=== PATIENT | female | born 1995 | race Caucasian/White ===

== ENCOUNTER 2019-01-14 18:57 | Emergency (ER) | payer OTHER ==
--- NOTE | 2019-01-14 19:48 | ER Document Report ---
ED Medical Screen (RME) - General Chief Complaint: Abscess Stated Complaint: SKIN PROBLEM Time Seen by Provider: 01/14/19 19:43 TRAVEL OUTSIDE OF THE [place] IN LAST 30 DAYS: No - HPI Notes: 01/14/19 19:46 Patient is a 23-year-old female with a history of hidradenitis suppurativa who presents c/o swelling, redness to her midline buttock area that is been present for the past week. No history of abscess in this area before. No history of MRSA. Denies drug allergies. Denies BHATTI, fever, neck pain, URI, CP, SOB, Abd pain, dysuria, back pain, or rash. I have treated and performed a rapid initial assessment of this patient. A comprehensive ED assessment and evaluation of the patient, analysis of test results and completion of medical decision making process will be conducted by additional ED providers. PHYSICAL EXAMINATION: GENERAL: Well-appearing, well-nourished and in no acute distress. A&Ox4. Answers questions appropriately. buttock: + erythemic tender area midline buttock favoring the rt gluteal cleft. No obvious pits noted. No discharge noted. - Related Data Allergies/Adverse Reactions: No Known Allergies Allergy (Unverified 01/14/19 18:58) Past Medical History - Social History Chew tobacco use (# tins/day): No Frequency of alcohol use: None Drug Abuse: None Renal/ Medical History: Denies: Hx Peritoneal Dialysis Physical Exam - Vital signs Vitals: Temp Pulse Resp BP Pulse Ox 98.4 F 101 H 20 136/77 H 99 01/14/19 19:27 01/14/19 19:27 01/14/19 19:27 01/14/19 19:27 01/14/19 19:27 Course - Vital Signs Vital signs: Temp Pulse Resp BP Pulse Ox 98.4 F 101 H 20 136/77 H 99 01/14/19 19:27 01/14/19 19:27 01/14/19 19:27 01/14/19 19:27 01/14/19 19:27
[2019-01-14] MEDS ORDERED: OXYCODONE-ACETAMINOPHEN 5-325 MG TABLET PO ONE (20:36)
[2019-01-14] MEDS ORDERED: LIDOCAINE 1% INJ-PF (10 MG/ML) 30 ML SDV INJ ONE (20:36)
[2019-01-14] MEDS ORDERED: OXYCODONE-ACETAMINOPHEN 5-325 MG TABLET ONE (21:15)
[2019-01-14] MEDS ORDERED: LIDOCAINE 1% INJ-PF (10 MG/ML) 30 ML SDV ONE (21:17)
--- NOTE | 2019-01-14 21:40 | ER Document Report ---
Entered by LETA CORONADO SCRIBE 01/14/192027 Acting as scribe for:KAITLYNN ALBARRAN MD ED Skin Rash/Insect Bite/Abscs - General Chief Complaint: Abscess Stated Complaint: SKIN PROBLEM Time Seen by Provider: 01/14/19 19:43 Mode of Arrival: Ambulatory Information source: Patient Notes: 23 year old female with hidradenitis suppurativa that presents to the emergency department today with complaints of an abscess around her tailbone for one week. Patient states she has a large amount of doxycycline at home due to her hidradenitis suppurativa and she states that she began taking it one week ago with no relief. Patient reports increased pain with ambulation and sitting down. TRAVEL OUTSIDE OF THE [place] IN LAST 30 DAYS: No - Related Data Allergies/Adverse Reactions: No Known Allergies Allergy (Unverified 01/14/19 18:58) Past Medical History - General Information source: Patient - Social History Smoking Status: Never Smoker Cigarette use (# per day): No Chew tobacco use (# tins/day): No Frequency of alcohol use: None Drug Abuse: None Lives with: Family Family History: Reviewed & Not Pertinent Patient has suicidal ideation: No Patient has homicidal ideation: No - Medical History Notes: Hidradenitis suppurativa Surgical Hx: Negative Review of Systems - Review of Systems Constitutional: No symptoms reported EENT: No symptoms reported Cardiovascular: No symptoms reported Respiratory: No symptoms reported Gastrointestinal: No symptoms reported Genitourinary: No symptoms reported Female Genitourinary: No symptoms reported Musculoskeletal: No symptoms reported Skin: See HPI, Other - buttock abscess Hematologic/Lymphatic: No symptoms reported Neurological/Psychological: No symptoms reported -: Yes All other systems reviewed and negative Physical Exam - Vital signs Vitals: Temp Pulse Resp BP Pulse Ox 98.4 F 101 H 20 136/77 H 99 01/14/19 19:27 01/14/19 19:27 01/14/19 19:27 01/14/19 19:27 01/14/19 19:27 - Notes Notes: PHYSICAL EXAMINATION: GENERAL: Well-appearing, well-nourished and in no acute distress. HEAD: Atraumatic, normocephalic. EYES: Pupils equal round and reactive to light, extraocular movements intact, sclera anicteric, conjunctiva are normal. ENT: nares patent, oropharynx clear without exudates. Moist mucous membranes. NECK: Normal range of motion, supple without lymphadenopathy LUNGS: Breath sounds clear to auscultation bilaterally and equal. No wheezes rales or rhonchi. HEART: Regular rate and rhythm without murmurs ABDOMEN: Soft, nontender, normoactive bowel sounds. No guarding, no rebound. No masses appreciated. BUTTOCK: At the top of the buttock cleft to the left is a tender indurated area about 1 cm wide and 1/2 cm in the longitudinal axis. There is very mild erythema noted. EXTREMITIES: Normal range of motion, no pitting or edema. No cyanosis. NEUROLOGICAL: Cranial nerves grossly intact. Normal speech, normal gait. Normal sensory, motor, and reflex exams. PSYCH: Normal mood, normal affect. SKIN: Warm, Dry, normal turgor, no rashes or lesions noted. Course - Vital Signs Vital signs: Temp Pulse Resp BP Pulse Ox 98.4 F 101 H 20 136/77 H 99 01/14/19 19:27 01/14/19 19:27 01/14/19 19:27 01/14/19 19:27 01/14/19 19:27 Procedures - Incision and Drainage Left Buttock Time completed: 22:15 Type: Simple Anesthetic type: 1% Lidocaine mL's of anesthetic: 6 Blade size: 11 I&D procedure: Shurclens applied, Iodoform packing placed Incision Method: Incision made by scalpel Notes: 01/14/19 22:25 Longitudinal incision was made into the indurated erythematous area. These subcutaneous tissue was quite thickened suggesting some chronic inflammation. There was no abscess cavity found. The wound was irrigated with 5 mL's normal saline, and packed with quarter inch iodoform gauze. Discharge - Discharge Clinical Impression: Left buttock abscess Condition: Stable Disposition: HOME, SELF-CARE Additional Instructions: Abscess You have an abscess (boil). This a pus-forming infection, usually due to staph. Some boils may be left to drain on their own, but most require lancing. From the time the tender lump first appears, it may be three or four days before the abscess is ready to simeon. Local heat and rest help at this stage of treatment. An antibiotic may prevent spread of the infection. Once the abscess is opened, packing may be placed into it. This is done so pus is not sealed inside by premature closure of the cavity. The packing will be removed at your follow-up visit or you may be advised to remove it yourself at home. Sometimes this packing must be replaced a few times during healing. The wound will heal with surprisingly little scar. Depending on the size and location of an abscess, healing can take one to four weeks. You may shower and wash the area around the incision site two or three times a day. Antibiotics may be prescribed, but are usually not necessary after an abscess has been drained. If you develop fever, chilling, worsening pain, or increasing swelling in the area, call the doctor or return immediately. Continue taking the doxycycline you are prescribed for the next several days. Remove the gauze packing in 2 days. Immediately begin probing the wound several times a day with a Q-tip dipped in peroxide. Soaking in a warm tub will make the area feel better, and may help it get well quicker. Take ibuprofen 800 mg every 8 hours for pain and inflammation. Take the pain medication as prescribed when needed. Follow-up [facility] if not improving. RETURN TO THE EMERGENCY ROOM IF ANY NEW OR WORSENING SYMPTOMS. Prescriptions: Oxycodone HCl/Acetaminophen [Percocet 5-325 mg Tablet] 1 tab PO ASDIR PRN #10 tablet PRN Reason: Forms: Return to Work Scribe Attestation: 01/14/19 20:35 I personally performed the services described in the documentation, reviewed and edited the documentation which was dictated to the scribe in my presence, and it accurately records my words and actions. I personally performed the services described in the documentation, reviewed and edited the documentation which was dictated to the scribe in my presence, and it accurately records my words and actions.
[2019-01-14] MEDS ORDERED: HYDROCODONE/ACETAMINOPHEN 5-325 MG (6 TAB/ER DISP) PO PRN (22:29)
[2019-01-14 22:39] VITALS: BP 120/58
== END 2019-01-14 23:03 | disposition home or self-care (01) ==
LOC: ER 18:57
PROC: 0H98XZZ Drainage of Buttock Skin, External Approach (ICD-10-PCS; principal; 2019-01-14)
DX: L02.31 Cutaneous abscess of buttock (principal)
CPT/HCPCS: 10060; A6266; J3490

== ENCOUNTER 2019-01-17 18:08 | Emergency (ER) | payer OTHER ==
[2019-01-17 18:20] VITALS: BP 133/89
--- NOTE | 2019-01-17 18:42 | ER Document Report ---
ED Suture/Wound Recheck - General Chief Complaint: Wound Recheck Stated Complaint: ABSCESS/NEEDS ROZ REMOVED,CLEANED Time Seen by Provider: 01/17/19 18:36 Mode of Arrival: Ambulatory Information source: Patient Notes: 23-year-old female presented to ED for perirectal abscess that needs to be reassessed. It was I&D on Saturday. She states they put plaque packing in the wound and she was told to take it out in 48 hours. She states she has been trying to take it out for 2 days but is too painful and she has not been able to pull it out. States her and her both have tried so she came to the emergency room to have it removed. There is no signs or symptoms of infection at this time it is draining after the packing was removed. There is no redness or inflammation at the site. TRAVEL OUTSIDE OF THE [place] IN LAST 30 DAYS: No - HPI Previous ED treatment: I&D of abscess Antibiotics given previously: Prescription Quality of pain: Achy Severity: Moderate Pain Level: 3 Exacerbated by: Sitting Relieved by: Denies - Related Data Allergies/Adverse Reactions: No Known Allergies Allergy (Verified 01/17/19 18:10) Past Medical History - General Information source: Patient - Social History Smoking Status: Never Smoker Lives with: Family Family History: Reviewed & Not Pertinent Patient has suicidal ideation: No Patient has homicidal ideation: No - Past Medical History Cardiac Medical History: Reports: None Pulmonary Medical History: Reports: None EENT Medical History: Reports: None Neurological Medical History: Reports: None Endocrine Medical History: Reports: None Renal/ Medical History: Reports: None Malignancy Medical History: Reports: None GI Medical History: Reports: None Musculoskeletal Medical History: Reports None Skin Medical History: Reports Hx Cellulitis - Hidradenitis Psychiatric Medical History: Reports: None Traumatic Medical History: Reports: None Infectious Medical History: Reports: None Surgical Hx: Negative Review of Systems - Review of Systems Constitutional: No symptoms reported EENT: No symptoms reported Cardiovascular: No symptoms reported Respiratory: No symptoms reported Gastrointestinal: No symptoms reported Genitourinary: No symptoms reported Female Genitourinary: No symptoms reported Musculoskeletal: No symptoms reported Skin: Other - Recheck of abscess to perirectal area. She does have a history of active hidradenitis Hematologic/Lymphatic: No symptoms reported Neurological/Psychological: No symptoms reported Physical Exam - Vital signs Vitals: Temp Pulse Resp BP Pulse Ox 98.0 F 113 H 18 133/89 H 97 01/17/19 18:19 01/17/19 18:19 01/17/19 18:19 01/17/19 18:19 01/17/19 18:19 Interpretation: Normal - General General appearance: Appears well, Alert - HEENT Head: Normocephalic, Atraumatic Eyes: Normal Pupils: PERRL - Respiratory Respiratory status: No respiratory distress Chest status: Nontender Breath sounds: Normal Chest palpation: Normal - Cardiovascular Rhythm: Regular Heart sounds: Normal auscultation Murmur: No - Abdominal Inspection: Normal Distension: No distension Bowel sounds: Normal Tenderness: Nontender Organomegaly: No organomegaly - Back Back: Normal, Nontender - Extremities General upper extremity: Normal inspection, Nontender, Normal color, Normal ROM, Normal temperature General lower extremity: Normal inspection, Nontender, Normal color, Normal ROM, Normal temperature, Normal weight bearing. No: Sharlene's sign - Neurological Neuro grossly intact: Yes Cognition: Normal Orientation: AAOx4 [place] Coma Scale Eye Opening: Spontaneous [place] Coma Scale Verbal: Oriented [place] Coma Scale Motor: Obeys Commands [place] Coma Scale Total: 15 Speech: Normal Motor strength normal: LUE, RUE, LLE, RLE Sensory: Normal - Psychological Associated symptoms: Normal affect, Normal mood - Skin Skin Temperature: Warm Skin Moisture: Dry Skin Color: Normal Skin irregularity: Abscess Location of irregularity: Other - Packing was removed from abscess to the buttocks there was I&D 2 days ago. She does have a history of hidradenitis Irregularity with: Swelling, Tenderness Course - Re-evaluation Re-evalutation: 01/17/19 18:51 Packing removed abscess irrigated and patient was discharged home to continue antibiotics. She was also instructed on using a hand-held shower to irrigate the area 3 times a day. Patient verbalized understanding and agreement with treatment plan and patient was discharged home. - Vital Signs Vital signs: Temp Pulse Resp BP Pulse Ox 98.0 F 109 H 18 133/89 H 97 01/17/19 18:19 01/17/19 19:01 01/17/19 18:19 01/17/19 18:19 01/17/19 18:19 Discharge - Discharge Clinical Impression: Abscess re-check Condition: Stable Disposition: HOME, SELF-CARE Instructions: Family Physicians / Practices Additional Instructions: Please irrigate the wound 3 times a day as I have instructed you. Use Tylenol or Motrin for your discomfort. Please keep dressings to the area as it will continue to drain for at least a week or more. Kotex is the best kind of dressing for this area as it is very absorbent Follow-up with your primary care doctor in the next 3 to 5 days FOLLOW-UP CARE: If you have been referred to a physician for follow-up care, call the physicians office for an appointment as you were instructed or within the next two days. If you experience worsening or a significant change in your symptoms, notify the physician immediately or return to the Emergency Department at any time for re-evaluation. Forms: Elevated Blood Pressure
== END 2019-01-17 18:56 | disposition home or self-care (01) ==
LOC: ER 18:08
DX: L02.31 Cutaneous abscess of buttock (principal)
CPT/HCPCS: 99282